=== PATIENT | male | born 1980 | race Hispanic/Latino ===

== ENCOUNTER 2018-01-12 17:24 | Emergency (ER) | payer SELFPAY ==
[2018-01-12 17:36] VITALS: TEMP 98.2; O2SAT 100
[2018-01-12 20:58] VITALS: BP 152/89; PULSE 87; RESP 16
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
== END 2018-01-12 21:32 | disposition home or self-care (01) ==
LOC: C.ER 17:24
DX: S01.85XA Open bite of other part of head, initial encounter (principal); W55.03XA Scratched by cat, initial encounter